=== PATIENT | female | born 1965 | race African-American/Black ===

== ENCOUNTER 2021-06-13 06:30 | Emergency (ER) | payer OTHER ==
[2021-06-13] MEDS ORDERED: Insulin Regular 300 UNITS/3 ML VIAL ONE (07:09)
== END 2021-06-13 07:18 | disposition home or self-care (01) ==
LOC: MADERS 06:30
DX: E11.65 Type 2 diabetes mellitus with hyperglycemia (principal); G47.30 Sleep apnea, unspecified; I10 Essential (primary) hypertension; G43.909 Migraine, unspecified, not intractable, without status migrainosus; F17.210 Nicotine dependence, cigarettes, uncomplicated; Z79.4 Long term (current) use of insulin
CPT/HCPCS: 36416; 99284; J1815

== ENCOUNTER 2022-07-20 11:10 | Outpatient (CLI) | payer OTHER ==
[2022-07-20 12:03] LABS: ALT (SGPT) 11 U/L (8-55); AST (SGOT) 8 U/L (5-34); Albumin 3.7 g/dL (3.5-5.0); Alkaline Phosphatase 78 U/L (40-110); Anion Gap 13 mmol/L (10-20); BUN (Urea Nitrogen) 20 mg/dL (9.8-20.1); Bilirubin, Total 0.4 mg/dL (0.2-1.2); Calc. Creatinine Clearance 0 mL/min (70-130); Calcium 9.1 mg/dL (7.8-10.44); Carbon Dioxide 25 mmol/L (22-29); Cardiac Risk 6.9 (Less than 4.5); Chloride 102 mmol/L (98-107); Cholesterol 193 mg/dl (< 200 Desired); Estimated GFR 50; Globulin 4.2 g/dL (2.4-3.5); Glucose 316 mg/dL (70-105); HDL Cholesterol 28 mg/dL (>60 Neg Risk); LDL Cholesterol, Calculated 130 mg/dL; Potassium 4.6 mmol/L (3.5-5.1); Protein, Total 7.9 g/dL (6.0-8.3); Sodium 135 mmol/L (136-145); Triglycerides 173 mg/dL (Less than 150)
[2022-07-20 12:18] LABS: Thyroid Stimulating Hormone 1.1598 uIU/mL (0.35-4.94)
[2022-07-20 16:22] LABS: Hemoglobin A1c 12.3 % (4.0-6.0)
[2022-07-20 16:52] LABS: Free T4 (Free Thyroxine) 0.95 ng/dL (0.70-1.48)
[2022-07-20 18:45] LABS: Creatinine, Urine 69.33 mg/dL (47-110)
[2022-07-20 19:00] LABS: Microalbumin Urine 164.3 mg/dL (0.5-50.0); Microalbumin/Creat Ratio 2371.2 mg/g (Less than 30)
== END 2022-07-20 11:11 | disposition home or self-care (01) ==
LOC: MADLABBHPM 11:10 → MADLAB 11:11
PROVIDERS: ATTEND Family Medicine
DX: E10.65 Type 1 diabetes mellitus with hyperglycemia (principal)
CPT/HCPCS: 80053; 80061; 82043; 83036; 84439; 84443

== ENCOUNTER 2022-08-12 17:14 | Emergency (ER) | payer OTHER ==
[2022-08-12 17:54] LABS: #Basophils 0.1 thou/uL (0.0-0.2); #Eosinphils 0.1 thou/uL (0.0-0.7); #Lymphocytes 1.9 thou/uL (1.20-3.40); #Monocytes 0.6 thou/uL (0.11-0.59); %Basophils 1.3 % (0.0-1.0); %Monocytes 6.5 % (0.0-10.0); %Neutrophils 69.2 % (42.0-75.0); Hemoglobin 11.8 g/dL (12.0-16.0); Mean Corpuscular HGB CONC 31.6 g/dL (32.0-36.0); Mean Corpuscular Hemoglobin 27.3 pg (27.0-31.0); Mean Corpuscular Volume 86.6 fL (78.0-98.0); Mean Platelet Volume 10.8 fL (7.4-10.4); Platelet Count 279 thou/uL (130-400); RBC Distribution Width 13.6 % (11.5-14.5); Red Blood Cell (RBC) Count 4.31 mill/uL (4.20-5.40); White Blood Cell (WBC) Count 8.7 thou/uL (4.8-10.8)
[2022-08-12 18:08] LABS: ALT (SGPT) 10 U/L (8-55); AST (SGOT) 8 U/L (5-34); Albumin 3.7 g/dL (3.5-5.0); Alkaline Phosphatase 66 U/L (40-110); Anion Gap 15 mmol/L (10-20); BUN (Urea Nitrogen) 19 mg/dL (9.8-20.1); Bilirubin, Total 0.5 mg/dL (0.2-1.2); Calc. Creatinine Clearance 0 mL/min (70-130); Calcium 9.1 mg/dL (7.8-10.44); Carbon Dioxide 26 mmol/L (22-29); Chloride 102 mmol/L (98-107); Estimated GFR 40; Globulin 3.5 g/dL (2.4-3.5); Glucose 274 mg/dL (70-105); Potassium 4.6 mmol/L (3.5-5.1); Protein, Total 7.2 g/dL (6.0-8.3); Sodium 138 mmol/L (136-145)
[2022-08-12] MEDS ORDERED: Sodium Chloride 0.9% 1,000 ML ONE (18:11)
[2022-08-12 18:14] LABS: Bilirubin Negative (Negative); Blood, Urine Negative (Negative); Glucose, Urine (Dipstick) 100 mg/dL (Negative); Ketone, Urine Trace mg/dL (Negative); Leukocyte Negative (Negative); Nitrite Negative (Negative); Protein, Urine (Dipstick) > or equal to 300 mg/dL (Neg-Trace); Specific Gravity, Urine 1.025 (1.005-1.030); Urobilinogen 0.2 mg/dL (Less than 2); pH, Urine 5.5 (5.0-9.0)
[2022-08-12 18:23] LABS: Clarity Hazy (Clear)
[2022-08-12 18:27] LABS: Bacteria/HPF 1+ HPF (None Seen); Mucous/LPF 2+ LPF (<2+); RBC/HPF 0-3 HPF (0-3); WBC/HPF 0-3 HPF (0-3)
== END 2022-08-12 20:21 | disposition home or self-care (01) ==
LOC: MADERS 17:14
DX: E11.65 Type 2 diabetes mellitus with hyperglycemia (principal); R53.1 Weakness; Z91.14 Patient's other noncompliance with medication regimen; I10 Essential (primary) hypertension; G43.909 Migraine, unspecified, not intractable, without status migrainosus; F17.210 Nicotine dependence, cigarettes, uncomplicated; Z79.4 Long term (current) use of insulin; Z79.899 Other long term (current) drug therapy
CPT/HCPCS: 36416; 80053; 81003; 81015; 84484; 85025; 93005; 96360; 36415-59; J7050

== ENCOUNTER 2023-02-16 23:37 | Emergency (ER) | payer OTHER | END 2023-02-17 00:22 | disposition home or self-care (01) | LOC: MADERS 23:37 | DX: R09.81 Nasal congestion (principal); E11.9 Type 2 diabetes mellitus without complications; Z79.4 Long term (current) use of insulin; I10 Essential (primary) hypertension; F17.210 Nicotine dependence, cigarettes, uncomplicated; Z79.899 Other long term (current) drug therapy | CPT/HCPCS: 99283 ==